=== PATIENT | male | born 1980 | race Caucasian/White ===

== ENCOUNTER 2017-11-26 20:19 | Emergency (ER) | payer MEDICAID ==
[2017-11-26] MEDS ORDERED: IBUPROFEN 400 MG TABLET ONE (22:07)
[2017-11-26] MEDS ORDERED: IBUPROFEN 200 MG TAB ONE (22:07)
[2017-11-26] MEDS ORDERED: CYCLOBENZAPRINE HCL 10 MG TABLET ONE (22:08)
== END 2017-11-26 23:19 | disposition home or self-care (01) ==
LOC: EDH 20:19
DX: R25.2 Cramp and spasm (principal); M54.2 Cervicalgia; J45.909 Unspecified asthma, uncomplicated; Z88.0 Allergy status to penicillin; Z88.6 Allergy status to analgesic agent